=== PATIENT | female | born 1950 | race African-American/Black ===

== ENCOUNTER 2017-04-08 12:27 | Day surgery (SDC) | payer BC ==
[~2017-04-08] VITALS: Ht 166.4 cm; Wt 74.8 kg
[2017-04-08 14:02] VITALS: Ht 166.4 cm; Wt 74.8 kg
[2017-04-08] MEDS ORDERED: TRAMADOL PO (14:12)
[2017-04-08 15:39] VITALS: BP 161/72; PULSE 59; RESP 15
[2017-04-08] MEDS ORDERED: PROPOFOL 40 ML ONE (15:51)
[2017-04-08] MEDS ORDERED: LIDOCAINE 2% (SDV) 5 ML INJ ONE (15:51)
[2017-04-08 16:39] VITALS: BP 155/68; RESP 20
--- NOTE | 2017-04-10 05:28 | GILP ---
DATE OF PROCEDURE: 04/08/2017 PROCEDURE: Colonoscopy with polyp ablation. PREMEDICATION: Monitored anesthesia care by anesthesiologist. SURGEON: Alon Solomon MD INSTRUMENT USED: Olympus colonoscope. PREPARATION: Adequate. TECHNIQUE: After informed consent, with the patient/relatives understanding the procedure, its indic ations potential risks and complications, including but not limited to: allergic reaction, bleeding, perforation, infection, missed lesions and after all pertinent questions were answered to the patie nt's satisfaction, the patient/relatives signed the witnessed informed consent. Following this, premedication was administered slowly IV push by under careful cardiovascular and re spiratory monitoring with pulse oximetry, automatic blood pressure and court monitor. Once the sedativ e effect was achieved, the patient was placed in the left lateral decubitus position, digital rectal examination was performed. The colonoscope was then introduced and advanced under visual control th roughout all segments of the colon including: the rectum, sigmoid, descending colon, splenic flexure , transverse colon, hepatic flexure, ascending colon and finally reaching the cecum which was clearl y identified by transillumination, finger indentation and the ileocecal valve. Careful examination o f the mucosa of the lower gastrointestinal tract both on insertion as well as withdrawal of the inst rument disclosed the following findings: Rectal Examination: No evidence of perirectal disease, no masses. Colonic Mucosa: The colonic mucosa is unremarkable with the exception of a 3 mm polyp in the ascend ing colon which was completely ablated with biopsy forceps. The ileocecal valve was clearly identif ied and appears unremarkable. The instrument was withdrawn reexamining the mucosa in detail. No ad ditional abnormalities are noted with the exception of moderate sized internal hemorrhoids. IMPRESSION: 1. A 3 mm polyp in the ascending colon, ablated. 2. Moderate sized internal hemorrhoids. PLAN: The patient will be followed up as an outpatient. Pathology will be reviewed as soon as jorge johns. Surveillance colonoscopy in 5 years is recommended. Further recommendation will depend on p atsravan's clinical course. Dictated By: ALON SOLOMON MS/ROSA MARIA Conf#: [id number] DID#: [id number] CC: ALON SOLOMON; ____ ____;*EndCC*
== END 2017-04-08 19:45 | disposition home or self-care (01) ==
LOC: GIL 12:27
PROVIDERS: ATTEND Internal Medicine Gastroenterology
DX: Z12.11 Encounter for screening for malignant neoplasm of colon (principal); D12.2 Benign neoplasm of ascending colon; K64.8 Other hemorrhoids; E11.9 Type 2 diabetes mellitus without complications; I10 Essential (primary) hypertension; E66.9 Obesity, unspecified; Z68.27 Body mass index [BMI] 27.0-27.9, adult
CPT/HCPCS: 45380; 88305; Z7610